=== PATIENT | female | born 1970 | race Caucasian/White ===

== ENCOUNTER 2020-04-11 09:01 | Emergency (ER) | payer OTHER ==
[~2020-04-11] VITALS: Ht 170.2 cm; Wt 65.0 kg
[~2020-04-11 09:01] MED LIST: IBUP-2070 PO; TRAM50TA4 PO
[2020-04-11 09:14] VITALS: BP 126/88
== END 2020-04-11 09:55 | disposition home or self-care (01) ==
LOC: EMS 09:03
DX: J02.9 Acute pharyngitis, unspecified (principal); M79.10 Myalgia, unspecified site; R19.7 Diarrhea, unspecified; Z20.828 Contact with and (suspected) exposure to other viral communicable diseases; Z88.8 Allergy status to other drugs, medicaments and biological substances
CPT/HCPCS: 87635; 99283; U0003

== ENCOUNTER 2020-07-15 16:53 | Emergency (ER) | payer OTHER ==
[~2020-07-15] VITALS: Ht 170.2 cm; Wt 68.2 kg
[2020-07-15] MEDS: LIDOCAINE 5% TRANSDERMAL PATCH TD ONE (19:01)
[2020-07-15 19:24] VITALS: BP 113/74
== END 2020-07-15 19:53 | disposition home or self-care (01) ==
LOC: EMS 17:17
DX: S70.01XA Contusion of right hip, initial encounter (principal); S80.11XA Contusion of right lower leg, initial encounter; F17.210 Nicotine dependence, cigarettes, uncomplicated; Z88.8 Allergy status to other drugs, medicaments and biological substances; Y04.2XXA Assault by strike against or bumped into by another person, initial encounter; Y93.89 Activity, other specified; Y92.89 Other specified places as the place of occurrence of the external cause; Y99.0 Civilian activity done for income or pay
CPT/HCPCS: 73502; 71046; 71046-TC

== ENCOUNTER 2021-05-09 10:06 | Emergency (ER) | payer OTHER ==
[~2021-05-09] VITALS: Ht 170.2 cm; Wt 61.4 kg
[2021-05-09 10:14] VITALS: BP 107/76
[2021-05-09] MEDS ORDERED: ONDANSETRON HCL 4 MG/2 ML VIAL IVP ONE (10:15)
[2021-05-09] MEDS ORDERED: KETOROLAC TROMETHAMINE 30 MG/ML VIAL IVP ONE (10:15)
[2021-05-09] MEDS ORDERED: SODIUM CHLORIDE 0.9% 1,000 ML IV ONE ×2 (10:15→12:00)
[2021-05-09] MEDS ORDERED: FAMOTIDINE 10 MG/ML 2 ML VIAL IVP ONE (10:15)
[2021-05-09 10:27] LABS: BASOPHILS % (AUTO) 1.3 % (0.0-2.0); EOSINOPHILS % (AUTO) 5.5 % (1.0-6.0); HEMATOCRIT 37.4 % (36-46); HEMOGLOBIN 12.6 g/dL (12.0-16.0); LYMPHOCYTES # (AUTO) 2.2 K/uL (1.0-4.8); LYMPHOCYTES % (AUTO) 26.1 % (22.0-44.0); MEAN CORPUSCULAR HEMOGLOBIN 32.5 pg (26.0-34.0); MEAN CORPUSCULAR HGB CONC 33.6 G/dL (31.0-37.0); MEAN CORPUSCULAR VOLUME 97 fL (80-100); MONOCYTES # (AUTO) 0.6 K/uL (0.1-1.0); MONOCYTES % (AUTO) 6.9 % (2.0-9.0); NEUTROPHILS # (AUTO) 5.2 K/uL (1.8-7.7); NEUTROPHILS % (AUTO) 60.2 % (40.0-70.0); PLATELET COUNT (AUTO) 311 K/uL (150-450); RED BLOOD CELL COUNT(AUTO) 3.86 MIL/uL (4.00-5.20); RED CELL DISTRIBUTION WIDTH 12.7 % (11.5-14.5)
[2021-05-09 10:49] LABS: ANION GAP 6 mmol/L (8-16); CALCIUM, TOTAL 8.5 mg/dL (8.8-10.5); CARBON DIOXIDE 24 mmol/L (22-29); CHLORIDE 104 mmol/L (98-107); CREATININE 0.68 mg/dL (0.60-1.30); GLOMERULAR FILTR. RATE CALC > 60 mL/min (>60); GLUCOSE,RANDOM 89 mg/dL (70-110); POTASSIUM 3.9 mmol/L (3.5-5.1); SODIUM SERUM 134 mmol/L (136-145); UREA NITROGEN, BLOOD 7 mg/dL (7-18)
[2021-05-09] MEDS ORDERED: SODIUM CHLORIDE 0.9% 100 ML ONE (11:10)
[2021-05-09] MEDS ORDERED: IOHEXOL 350 MG/ML 100 ML VIAL ONE (11:10)
[2021-05-09 11:12] LABS: ALANINE AMINOTRANSFERASE 21 U/L (12-78); ALBUMIN 3.7 g/dL (3.4-5.0); ALKALINE PHOSPHATASE 77 U/L (46-116); ASPARTATE AMINOTRANSFERASE 13 U/L (15-37); BILIRUBIN,TOTAL 0.4 mg/dL (0.1-1.0); HCG,QUANTITATIVE < 1 mIU/mL (0-6); LIPASE 85 U/L (73-393); TOTAL PROTEIN, SERUM 7.4 g/dL (6.4-8.2)
[2021-05-09] MEDS ORDERED: AMOX TR/POT CLAV 875 MG/125 MG TABLET PO ONE (12:00)
[2021-05-09 14:01] LABS: APPEARANCE,URINE CLEAR (CLEAR); BILIRUBIN,URINE NEGATIVE (NEGATIVE); GLUCOSE, URINE (UA) NEGATIVE (NEGATIVE); KETONES,URINE NEGATIVE (NEGATIVE); LEUKOCYTE ESTERASE ,URINE NEGATIVE (NEGATIVE); NITRATE,URINE NEGATIVE (NEGATIVE); OCCULT BLOOD,URINE NEGATIVE (NEGATIVE); PROTEIN,URINE NEGATIVE (NEGATIVE); UROBILINOGEN,URINE 0.2 mg/dL (<=1.0)
== END 2021-05-09 14:39 | disposition home or self-care (01) ==
LOC: EMS 10:10
DX: K52.9 Noninfective gastroenteritis and colitis, unspecified (principal); F17.210 Nicotine dependence, cigarettes, uncomplicated
CPT/HCPCS: 36415; 74177; 80053; 81003; 83690; 84702; 85025; 96361; 96374; 96375; 99285; A9575; J1885; J2405; J3490; J7050

== ENCOUNTER 2022-01-22 17:38 | Emergency (ER) | payer OTHER ==
[~2022-01-22] VITALS: Ht 170.2 cm; Wt 66.0 kg
[2022-01-22 17:53] VITALS: BP 111/65
[2022-01-22 18:07] LABS: COVID AG,FIA SOURCE NASOPHARYNGEAL
[2022-01-22 18:26] LABS: INFLUENZA TYPE A NEGATIVE FOR TYPE A (NEGATIVE); INFLUENZA TYPE B NEGATIVE FOR TYPE B (NEGATIVE)
== END 2022-01-22 18:40 | disposition home or self-care (01) ==
LOC: EMS 17:38
DX: J06.9 Acute upper respiratory infection, unspecified (principal); Z20.822 Contact with and (suspected) exposure to COVID-19; Z98.890 Other specified postprocedural states; Z88.8 Allergy status to other drugs, medicaments and biological substances
CPT/HCPCS: 87804; 99283

== ENCOUNTER 2022-03-07 07:14 | Emergency (ER) | payer OTHER ==
[~2022-03-07] VITALS: Ht 165.1 cm; Wt 68.2 kg
[2022-03-07] MEDS ORDERED: DiphenhydrAMINE HCL 50 MG/ML VIAL IVP ONE (07:45)
[2022-03-07] MEDS ORDERED: METOCLOPRAMIDE HCL 5 MG/ML 2 ML VIAL IVP ONE (07:45)
[2022-03-07] MEDS ORDERED: SODIUM CHLORIDE 0.9% 1,000 ML IV ONE (07:45)
[2022-03-07] MEDS ORDERED: ACETAMINOPHEN 500 MG TABLET PO ONE (07:45)
[2022-03-07 08:15] LABS: COVID AG,FIA SOURCE NASOPHARYNGEAL
[2022-03-07 10:16] VITALS: BP 122/78
== END 2022-03-07 10:16 | disposition home or self-care (01) ==
LOC: EMS 07:23
DX: G43.909 Migraine, unspecified, not intractable, without status migrainosus (principal); F17.210 Nicotine dependence, cigarettes, uncomplicated; Z88.8 Allergy status to other drugs, medicaments and biological substances; Z20.822 Contact with and (suspected) exposure to COVID-19
CPT/HCPCS: 70450; 81025; 87426; 96361; 96374; 96375; 99284; J1200; J2765; J7030

== ENCOUNTER 2022-06-27 05:41 | Day surgery (SDC) | payer OTHER ==
[2022-06-26 09:41] LABS: COVID AG,FIA SOURCE NASAL SWAB
[2022-06-26 11:38] LABS: EOSINOPHILS % (AUTO) 4.1 % (1.0-6.0); HEMATOCRIT 37.6 % (36-46); HEMOGLOBIN 12.7 g/dL (12.0-16.0); LYMPHOCYTES # (AUTO) 2.3 K/uL (1.0-4.8); LYMPHOCYTES % (AUTO) 29.5 % (22.0-44.0); MEAN CORPUSCULAR HEMOGLOBIN 32.7 pg (26.0-34.0); MEAN CORPUSCULAR HGB CONC 33.8 G/dL (31.0-37.0); MEAN CORPUSCULAR VOLUME 97 fL (80-100); MONOCYTES # (AUTO) 0.4 K/uL (0.1-1.0); MONOCYTES % (AUTO) 4.9 % (2.0-9.0); NEUTROPHILS # (AUTO) 4.8 K/uL (1.8-7.7); NEUTROPHILS % (AUTO) 60.5 % (40.0-70.0); PLATELET COUNT (AUTO) 301 K/uL (150-450); RED BLOOD CELL COUNT(AUTO) 3.88 MIL/uL (4.00-5.20); RED CELL DISTRIBUTION WIDTH 12.7 % (11.5-14.5)
[2022-06-26 12:04] LABS: INR 0.9 (0.9-1.1); PROTHROMBIN TIME 10.1 SEC (9.4-11.6)
[2022-06-26 12:17] LABS: ANION GAP 9 mmol/L (8-16); CARBON DIOXIDE 24 mmol/L (22-29); CHLORIDE 104 mmol/L (98-107); CREATININE 0.86 mg/dL (0.60-1.30); GLUCOSE,RANDOM 91 mg/dL (70-110); POTASSIUM 3.7 mmol/L (3.5-5.1); SODIUM SERUM 137 mmol/L (136-145); UREA NITROGEN, BLOOD 7 mg/dL (7-18)
[2022-06-26 12:20] LABS: GLOMERULAR FILTR. RATE CALC > 60 mL/min (>60)
[2022-06-26 12:23] LABS: ALANINE AMINOTRANSFERASE 22 U/L (12-78); ALBUMIN 3.8 g/dL (3.4-5.0); ALKALINE PHOSPHATASE 87 U/L (46-116); ASPARTATE AMINOTRANSFERASE 17 U/L (15-37); BILIRUBIN,TOTAL 0.3 mg/dL (0.1-1.0); TOTAL PROTEIN, SERUM 7.6 g/dL (6.4-8.2)
[~2022-06-27] VITALS: Ht 170.2 cm; Wt 68.2 kg
[~2022-06-27 05:41] MED LIST changes: -IBUP-2070 PO; +RINGERS SOLUTION,LACTATED 1,000 ML IV ONE; -TRAM50TA4 PO
[2022-06-27] MEDS ORDERED: RINGERS SOLUTION,LACTATED 1,000 ML IV ONE ×2 (06:00→09:04)
[2022-06-27] MEDS ORDERED: BUPIVACAINE HCL/PF 0.25% 30 ML VIAL ONE (06:44)
[2022-06-27] MEDS ORDERED: SODIUM CHLORIDE 0.9% 1,000 ML ONE (06:44)
[2022-06-27] MEDS ORDERED: SODIUM CL IRRIG SOLN BAG 3,000 ML IRRIG ONE (06:44)
[2022-06-27] MEDS ORDERED: BUPIVACAINE HCL/PF 0.5% 30 ML VIAL ONE (06:56)
[2022-06-27] MEDS ORDERED: BUPIVACAINE LIPOSOME/PF 1.3%-13.3MG/ML SUSPENSION 10 ML VIAL INJ ONE (07:00)
[2022-06-27 07:11] LABS: GLUCOMETER DEV NAME(LOC) SDS.; GLUCOSE,POINT OF CARE 96 MG/DL (70-110)
[2022-06-27] MEDS ORDERED: LEUPROLIDE ACETATE 22.5 MG KIT IM ONE (08:15)
[2022-06-27] MEDS ORDERED: FentaNYL CITRATE PF 100 MCG/2 ML VIAL ONE (09:25)
[2022-06-27] MEDS ORDERED: ONDANSETRON HCL 4 MG/2 ML VIAL ONE (09:29)
[2022-06-27] MEDS ORDERED: FentaNYL CITRATE PF 100 MCG/2 ML VIAL IVP PRN (09:30)
[2022-06-27] MEDS ORDERED: MEPERIDINE-PF 25 MG/ML VIAL IVP PRN (09:30)
[2022-06-27] MEDS ORDERED: HYDROmorphone HCL 2 MG/ML SYRINGE IVP PRN (09:30)
[2022-06-27] MEDS ORDERED: MEPERIDINE-PF 25 MG/ML VIAL ONE (09:42)
[2022-06-27] MEDS ORDERED: ONDANSETRON HCL 4 MG/2 ML VIAL IVP ONE ×2 (09:45→12:00)
[2022-06-27] MEDS ORDERED: LIDOCAINE/PF 2% 5 ML VIAL IM ONE (12:00)
[2022-06-27] MEDS ORDERED: MIDAZOLAM HCL 2 MG/2 ML VIAL IVP ONE (12:00)
[2022-06-27] MEDS ORDERED: DEXAMETHASONE SOD PHOS 4 MG/ML VIAL IVP ONE (12:00)
[2022-06-27] MEDS ORDERED: KETOROLAC TROMETHAMINE 60 MG/2 ML VIAL IM ONE (12:00)
[2022-06-27] MEDS ORDERED: PROPOFOL 1% 20 ML VIAL IVP ONE (12:00)
[2022-06-27] MEDS ORDERED: FentaNYL CITRATE PF 100 MCG/2 ML VIAL IVP ONE (12:00)
[2022-06-27] MEDS ORDERED: 0.9% SODIUM CHLORIDE 10 ML VIAL IVP ONE (12:00)
[2022-06-27] MEDS ORDERED: ROCURONIUM BROMIDE 10 MG/ML 5 ML VIAL IVP ONE (12:00)
[2022-06-27] MEDS ORDERED: OxyCODONE HCL/ACETAMINOPHEN 10-325 MG TABLET PO ONE (12:15)
[2022-06-27] MEDS ORDERED: OxyCODONE HCL/ACETAMINOPHEN 10-325 MG TABLET ONE (12:18)
[2022-06-27] MEDS ORDERED: ONDA-104 PO (13:24)
[2022-06-27] MEDS ORDERED: OXYGEN THERAPY IH SCH (20:00)
== END 2022-06-27 13:35 | disposition home or self-care (01) ==
LOC: SURGERY 05:41
PROVIDERS: ATTEND Obstetrics & Gynecology
DX: N80.8 Other endometriosis (principal); Z79.899 Other long term (current) drug therapy; Z20.822 Contact with and (suspected) exposure to COVID-19; Z98.890 Other specified postprocedural states; Z88.1 Allergy status to other antibiotic agents
CPT/HCPCS: 71046; 80053; 85025; 85610; 85730; 86850; 86900; 86901; 86923; 36415; 93005; 87426; 58662; 49321; 82962; 84703; 88305; C9803; J3490 ×3; J2704; J0690; J1100; J3010; J1885; J9217; J2175; J2250; J2405; Q9967; J7120; J7030; J1170; C1716; Z7610

== ENCOUNTER → 2023-03-13 | Outpatient (CLI) | payer OTHER ==
[~2023-03-13] MED LIST changes: +ONDA-104 PO; -RINGERS SOLUTION,LACTATED 1,000 ML IV ONE
== END | disposition home or self-care (01) ==
LOC: RADMN 19:47
PROVIDERS: ATTEND Emergency Medicine
DX: I67.2 Cerebral atherosclerosis (principal); R51.9 Headache, unspecified
CPT/HCPCS: 70450

== ENCOUNTER → 2023-03-26 | Outpatient (CLI) | payer OTHER ==
[~2023-03-26] VITALS: Ht 170.2 cm; Wt 81.3 kg
[~2023-03-26] MED LIST changes: +LORA-1000 PO
[2023-03-26 13:16] VITALS: BP 101/73; PULSE 104; RESP 20; TEMP 98.2; O2SAT 98
== END | disposition home or self-care (01) ==
LOC: SRCNTR 13:04
PROVIDERS: ATTEND Hospitalist
DX: G43.909 Migraine, unspecified, not intractable, without status migrainosus (principal); F41.9 Anxiety disorder, unspecified; Z72.0 Tobacco use
CPT/HCPCS: 36415; 85610; 85613; 85730; 85732; G0463

== ENCOUNTER → 2023-06-13 | Outpatient (CLI) | payer OTHER | END | disposition home or self-care (01) | LOC: SRCNTR 13:17 | PROVIDERS: ATTEND Hospitalist | DX: G43.111 Migraine with aura, intractable, with status migrainosus (principal); F41.1 Generalized anxiety disorder; Z72.0 Tobacco use | CPT/HCPCS: G0463 ==